=== PATIENT | female | born 1940 | race Caucasian/White ===

== ENCOUNTER 2018-02-21 07:40 | Inpatient (IN) | payer OTHER ==
[2018-02-21] VITALS (23 sets, daily range): BP systolic 59–168; BP diastolic 38–76
[~2018-02-21] VITALS: Ht 419.1 cm; Wt 64.7 kg
[2018-02-21] MEDS ORDERED: BACITRACIN 50,000 UNIT VIAL ONE (10:12)
[2018-02-21] MEDS ORDERED: OCTYL 2-CYANOACRYLATE 1 EACH TP ONE (10:12)
[2018-02-21] MEDS ORDERED: DIGOXIN PO (10:28)
[2018-02-21] MEDS ORDERED: SENN-183 PO (10:28)
[2018-02-21] MEDS ORDERED: SENN-107 PO (10:28)
[2018-02-21] MEDS ORDERED: CARV3.12 PO (10:28)
[2018-02-21] MEDS ORDERED: MULT-1203 PO (10:28)
[2018-02-21] MEDS ORDERED: PANT40TA25 PO (10:28)
[2018-02-21] MEDS ORDERED: ASPI-555 PO (10:28)
[2018-02-21] MEDS ORDERED: SPIR25TA6 PO (10:28)
[2018-02-21] MEDS ORDERED: ATOR40TA71 PO (10:28)
[2018-02-21] MEDS ORDERED: ROCURONIUM BROMIDE 10MG/1ML 5ML VL ONE (10:37)
[2018-02-21] MEDS ORDERED: SODIUM BICARB 50MEQ 50ML VIAL ONE ×2 (10:37→11:46)
[2018-02-21] MEDS ORDERED: AMIODARONE HCL 50 MG/ML 3 ML VIAL ONE (10:37)
[2018-02-21] MEDS ORDERED: CLINDAMYCIN 900 MG/D5% WATER 50 ML IV ONE (10:37)
[2018-02-21] MEDS ORDERED: POTASSIUM CHLORIDE 20MEQ/100ML 200 ML IV ONE (10:37)
[2018-02-21] MEDS ORDERED: SODIUM CHLORIDE 0.9% 1000ML 1,000 ML IV ONE (10:37)
[2018-02-21] MEDS ORDERED: NITROGLYCERIN 50 MG/D5% WATER 1 BOT ONE (10:37)
[2018-02-21] MEDS ORDERED: THROMBIN-JMI 5000 UNIT/VIAL TP ONE (11:42)
[2018-02-21] MEDS ORDERED: DELNIDO FORMULA 2 BAG IV ONE (11:42)
[2018-02-21] MEDS ORDERED: PROPOFOL 10 MG/ML 20ML VIAL IV ONE (11:46)
[2018-02-21] MEDS ORDERED: AMINOCAPROIC ACID 250 MG/ML 20 ML VIAL IV ONE (11:46)
[2018-02-21] MEDS ORDERED: MIDAZOLAM HCL 1 MG/ML 5ML VIAL ONE (11:46)
[2018-02-21] MEDS ORDERED: EPINEPHRINE 1 MG/ML AMPULE ONE (11:46)
[2018-02-21] MEDS ORDERED: HEPARIN SODIUM 1000UNIT/ML 10ML VIAL ONE (11:46)
[2018-02-21] MEDS ORDERED: ESMOLOL HCL 10 MG/ML 10 ML VIAL ONE (11:46)
[2018-02-21] MEDS ORDERED: LIDOCAINE PF 2% 5ML ABBOJECT ONE (11:46)
[2018-02-21] MEDS ORDERED: FENTANYL CITRATE PF 50 MCG/1 ML 20ML VIAL IJ ONE (11:46)
[2018-02-21] MEDS ORDERED: NOREPINEPHRINE BITARTRATE 1 MG/1 ML ML IV ONE ×2 (11:46→12:45)
[2018-02-21] MEDS ORDERED: NEOSTIGMINE 5MG/5ML SYR IV ONE (11:47)
[2018-02-21] MEDS ORDERED: GLYCOPYRROLATE 1 MG/5 ML SYRINGE ONE (12:17)
[2018-02-21 12:19] LABS: ABG BASE EXCESS -4.2 mmol/L (-2.0-3.0); ABG HCO3 21.2 mmol/L (21.0-28.0); ABG OXYGEN SATURATION 99.5 % (95.0-99.0); ABG PCO2 40 mmHg (32-45)
[2018-02-21] MEDS ORDERED: METHYLPREDNISOLONE SOD SUCC 1,000 MG/8 ML ML IV ONE (12:45)
[2018-02-21] MEDS: Q-PUMP 1 EACH IRRIG SCH (13:15)
[2018-02-21] MEDS ORDERED: SODIUM CHLORIDE 0.9% 500ML 500 ML IV SCH (13:19)
[2018-02-21 13:20] LABS: ABG BASE EXCESS 3.1 mmol/L (-2.0-3.0); ABG HCO3 26.2 mmol/L (21.0-28.0); ABG OXYGEN SATURATION 98.9 % (95.0-99.0); ABG PCO2 34 mmHg (32-45)
[2018-02-21] MEDS ORDERED: AMINOCAPROIC ACID 15,000 MG in SODIUM CHLORIDE 0.9% 250 ML IV SCH (13:30)
[2018-02-21] MEDS ORDERED: ACETAMINOPHEN 650 MG SUPPOSITORY RC PRN (13:30)
[2018-02-21] MEDS ORDERED: ACETAMINOPHEN 325 MG TAB PO PRN (13:30)
[2018-02-21] MEDS ORDERED: POTASSIUM CHLORIDE 20MEQ/100ML 100 ML IV PRN (13:30)
[2018-02-21] MEDS ORDERED: PROPOFOL 1000 MG/100 ML 100 ML IV PRN (13:30)
[2018-02-21] MEDS ORDERED: TRAMADOL HCL 50 MG TABLET PO SCH (13:30)
[2018-02-21] MEDS ORDERED: POTASSIUM PHOS 15 mMOL+NS250ML 250 ML IV PRN (13:30)
[2018-02-21] MEDS ORDERED: SODIUM CHLORIDE 0.9% 1000ML 1,000 ML IV SCH (13:30)
[2018-02-21] MEDS ORDERED: SODIUM CHLORIDE 0.9% 10 ML VIAL IVP PRN (13:30)
[2018-02-21] MEDS ORDERED: TRAMADOL HCL 50 MG TABLET PO PRN ×2 (13:30→18:00)
[2018-02-21] MEDS ORDERED: NITROGLYCERIN 50 MG/D5% WATER 250 BOT IV SCH (13:30)
[2018-02-21] MEDS ORDERED: EPINEPHRINE 8 MG in SODIUM CHLORIDE 0.9% 250 ML IV PRN (13:30)
[2018-02-21] MEDS ORDERED: SODIUM CHLORIDE 0.9% 250 ML IV PRN (13:30)
[2018-02-21] MEDS ORDERED: ALBUMIN (HUMAN) 5% 250 ML IV PRN (13:30)
[2018-02-21] MEDS ORDERED: GLUCAGON 1MG KIT 1 MG ML IM PRN (13:30)
[2018-02-21] MEDS ORDERED: NOREPINEPHRINE 4MG/NS 250ML 250 ML IV PRN (13:30)
[2018-02-21] MEDS ORDERED: DEXTROSE 50%-WATER 50 ML DISP.SYRIN IV PRN (13:30)
[2018-02-21] MEDS ORDERED: ONDANSETRON HCL 4 MG/2 ML VIAL IV PRN (13:30)
[2018-02-21] MEDS ORDERED: MAGNESIUM 2GM PREMIX 50ML 50 ML IV PRN (13:30)
[2018-02-21 13:46] LABS: ABG BASE EXCESS -7.4 mmol/L (-2.0-3.0); ABG HCO3 17.1 mmol/L (21.0-28.0); ABG OXYGEN SATURATION 99.2 % (95.0-99.0); ABG PCO2 31 mmHg (32-45)
[2018-02-21] MEDS ORDERED: PROTAMINE SULFATE 10 MG/ML 25ML VIAL IV ONE (13:54)
[2018-02-21] MEDS ORDERED: PROTAMINE SULFATE 10 MG/ML 5 ML VIAL ONE (13:54)
[2018-02-21] MEDS ORDERED: ROPIVACAINE 0.2% 2MG/ML 100ML VIAL IJ ONE (14:00)
[2018-02-21 14:15] LABS: ABG BASE EXCESS -4.9 mmol/L (-2.0-3.0); ABG HCO3 18.2 mmol/L (21.0-28.0); ABG OXYGEN SATURATION 98.8 % (95.0-99.0); ABG PCO2 27 mmHg (32-45)
[2018-02-21] MEDS ORDERED: SUB TO ALBUTEROL 2.5MG/3ML NEBULES PER P&T IH ONE (14:31)
[2018-02-21 14:52] LABS: ABG BASE EXCESS -2.1 mmol/L (-2.0-3.0); ABG HCO3 23.6 mmol/L (21.0-28.0); ABG OXYGEN SATURATION 96.4 % (95.0-99.0); ABG PCO2 44 mmHg (32-45)
[2018-02-21 15:46] LABS: HEMATOCRIT 34.1 % (36-48); MEAN CORPUSCULAR HEMOGLOBIN 29.1 pg (27.0-33.0); MEAN CORPUSCULAR HGB CONC 32.7 g/dL (32.0-36.0); MEAN CORPUSCULAR VOLUME 89.1 fL (79-99); NUCLEATED RED BLOOD CELLS 0.1 % (0.0-0.19); PLATELET COUNT (AUTO) 170 K/uL (130-400); RED BLOOD CELL COUNT(AUTO) 3.82 MIL/uL (4.00-5.50); RED CELL DISTRIBUTION WIDTH 17.2 % (11.0-15.5); WHITE BLOOD COUNT (AUTO) 22.8 K/uL (4.8-10.8)
[2018-02-21 15:47] LABS: ABG HCO3 19.7 mmol/L (21.0-28.0); ABG PCO2 44 mmHg (32-45)
[2018-02-21 15:58] LABS: CREATININE 1.1 mg/dL (0.5-1.5); MAGNESIUM 2.8 mg/dL (1.80-2.40); PHOSPHORUS 4.3 mg/dL (2.5-4.9); POTASSIUM 4.3 mmol/L (3.5-5.1)
[2018-02-21] MEDS: CALCIUM GLUCONATE 1 GM in SODIUM CHLORIDE 0.9% 50 ML IV PRN (16:05)
[2018-02-21] MEDS: INSULIN REGULAR, HUMAN 3ML 100 UNIT in SODIUM CHLORIDE 0.9% 99 ML IV SCH ×2 (16:07)
[2018-02-21] MEDS: SODIUM BICARB 50MEQ 50ML VIAL IV PRN ×2 (16:10→17:10)
[2018-02-21 17:00] LABS: ABG BASE EXCESS -2.1 mmol/L (-2.0-3.0); ABG OXYGEN SATURATION 90.5 % (95.0-99.0); ABG PCO2 52 mmHg (32-45)
[2018-02-21 18:07] LABS: ABG BASE EXCESS -0.2 mmol/L (-2.0-3.0); ABG HCO3 26.6 mmol/L (21.0-28.0); ABG PCO2 52 mmHg (32-45)
[2018-02-21 19:10] LABS: ABG BASE EXCESS -0.7 mmol/L (-2.0-3.0); ABG HCO3 25.4 mmol/L (21.0-28.0); ABG OXYGEN SATURATION 93.2 % (95.0-99.0); ABG PCO2 47 mmHg (32-45)
[2018-02-21] MEDS: ATORVASTATIN CALCIUM 40 MG TABLET PO SCH (20:35)
[2018-02-21] MEDS ORDERED: ASPIRIN 81MG TAB.CHEW PO SCH (21:00)
[2018-02-21] MEDS: CLINDAMYCIN 900 MG/D5% WATER 50 ML IV SCH (21:23)
[2018-02-21 22:00] LABS: MAGNESIUM 2.6 mg/dL (1.80-2.40); POTASSIUM 3.7 mmol/L (3.5-5.1)
[2018-02-21] MEDS ORDERED: CALCIUM GLUCONATE 1 GM/10 ML VIAL IV ONE (22:31)
[2018-02-22] VITALS (35 sets, daily range): BP systolic 48–188; BP diastolic 35–83
[2018-02-22 00:17] LABS: ABG BASE EXCESS -1.6 mmol/L (-2.0-3.0); ABG HCO3 23.4 mmol/L (21.0-28.0); ABG OXYGEN SATURATION 96.9 % (95.0-99.0); ABG PCO2 41 mmHg (32-45)
[2018-02-22] MEDS: SODIUM BICARB 50MEQ 50ML VIAL IV PRN (00:17)
[2018-02-22 02:27] LABS: ABG BASE EXCESS 2.6 mmol/L (-2.0-3.0); ABG HCO3 27.3 mmol/L (21.0-28.0); ABG OXYGEN SATURATION 91.8 % (95.0-99.0); ABG PCO2 43 mmHg (32-45)
[2018-02-22 03:37] LABS: ABG BASE EXCESS 2.5 mmol/L (-2.0-3.0); ABG HCO3 27.3 mmol/L (21.0-28.0); ABG OXYGEN SATURATION 94.2 % (95.0-99.0); ABG PCO2 43 mmHg (32-45)
[2018-02-22 03:46] LABS: MEAN CORPUSCULAR HEMOGLOBIN 28.1 pg (27.0-33.0); MEAN CORPUSCULAR HGB CONC 31.9 g/dL (32.0-36.0); MEAN CORPUSCULAR VOLUME 88.2 fL (79-99); PLATELET COUNT (AUTO) 157 K/uL (130-400); RED BLOOD CELL COUNT(AUTO) 4.09 MIL/uL (4.00-5.50); RED CELL DISTRIBUTION WIDTH 17.2 % (11.0-15.5); WHITE BLOOD COUNT (AUTO) 21.6 K/uL (4.8-10.8)
[2018-02-22 03:58] LABS: INR 1.02 (0.85-1.15); PARTIAL THROMBOPLASTIN TIME 23.6 SEC (26.3-35.5); PROTHROMBIN TIME 10.7 SEC (9.6-11.6)
[2018-02-22 04:01] LABS: CREATININE 1.7 mg/dL (0.5-1.5); MAGNESIUM 2.4 mg/dL (1.80-2.40); PHOSPHORUS 3.3 mg/dL (2.5-4.9); POTASSIUM 4.3 mmol/L (3.5-5.1)
[2018-02-22] MEDS: CLINDAMYCIN 900 MG/D5% WATER 50 ML IV SCH ×2 (06:02→14:09)
[2018-02-22] MEDS ORDERED: ALBUMIN (HUMAN) 5% 250 ML IV ONE ×2 (07:53→17:11)
[2018-02-22] MEDS: PANTOPRAZOLE SODIUM 40 MG TABLET.DR PO SCH (07:58)
[2018-02-22] MEDS ORDERED: DEXTROSE 5%-WATER 1,000 ML IV SCH (10:00)
[2018-02-22] MEDS: DIGOXIN 125 MCG TABLET PO SCH (10:50)
[2018-02-22] MEDS: Q-PUMP 1 EACH IRRIG SCH (12:04)
[2018-02-22 17:26] LABS: ABG HCO3 29.3 mmol/L (21.0-28.0); ABG OXYGEN SATURATION 94.9 % (95.0-99.0); ABG PCO2 48 mmHg (32-45)
[2018-02-22] MEDS: CALCIUM GLUCONATE 1 GM in SODIUM CHLORIDE 0.9% 50 ML IV PRN (17:44)
[2018-02-22] MEDS: INSULIN REGULAR, HUMAN 3ML 100 UNIT in SODIUM CHLORIDE 0.9% 99 ML IV SCH ×2 (17:45)
[2018-02-22] MEDS: ATORVASTATIN CALCIUM 40 MG TABLET PO SCH ×2 (20:29→20:30)
[2018-02-23] VITALS (7 sets, daily range): BP systolic 108–149; BP diastolic 45–95
[2018-02-23 03:33] LABS: BASOPHILS % (AUTO) 0.1 % (0.0-5.0); EOSINOPHILS % (AUTO) 0.1 % (0.0-8.0); HEMATOCRIT 26.7 % (36-48); MEAN CORPUSCULAR HEMOGLOBIN 29.2 pg (27.0-33.0); MEAN CORPUSCULAR HGB CONC 32.7 g/dL (32.0-36.0); MEAN CORPUSCULAR VOLUME 89.2 fL (79-99); MONOCYTES % (AUTO) 7.6 % (3.0-13.0); NEUTROPHILS % (AUTO) 88.2 % (40.0-77.0); PLATELET COUNT (AUTO) 98 K/uL (130-400); RED BLOOD CELL COUNT(AUTO) 2.99 MIL/uL (4.00-5.50); RED CELL DISTRIBUTION WIDTH 17.4 % (11.0-15.5); WHITE BLOOD COUNT (AUTO) 19.6 K/uL (4.8-10.8)
[2018-02-23 03:47] LABS: CREATININE 1.2 mg/dL (0.5-1.5); POTASSIUM 4.5 mmol/L (3.5-5.1)
[2018-02-23] MEDS: PANTOPRAZOLE SODIUM 40 MG TABLET.DR PO SCH (08:37)
[2018-02-23] MEDS: FUROSEMIDE 20 MG TABLET PO SCH ×2 (08:38→17:25)
[2018-02-23] MEDS: ASPIRIN 81MG TAB.CHEW PO SCH (08:38)
[2018-02-23] MEDS: DIGOXIN 125 MCG TABLET PO SCH (08:38)
[2018-02-23] MEDS ORDERED: SODIUM CHLORIDE 3% FOR INHALATION 4 ML/AMP VIAL.NEB IH ONE (11:41)
[2018-02-23 11:45] LABS: APPEARANCE,URINE Clear (CLEAR); BILIRUBIN,URINE Negative (NEGATIVE); COLOR,URINE Yellow (YELLOW); GLUCOSE, URINE (UA) Negative (NEGATIVE); KETONES,URINE Negative (NEGATIVE); LEUKOCYTE ESTERASE ,URINE Trace (NEGATIVE); NITRATE,URINE Negative (NEGATIVE); OCCULT BLOOD,URINE Negative (NEGATIVE); PH,URINE 5.5 (5.0-8.0); PROTEIN,URINE Negative (NEGATIVE); UROBILINOGEN,URINE 0.2 mg/dL (0.2-1.0)
[2018-02-23 11:57] LABS: BACTERIA,URINE Few /HPF (None Seen); SQUAMOUS EPITHELIAL CELL,UR 0-2 /HPF (0-2); WBC,URINE 0-1 /HPF (0-1)
[2018-02-23] MEDS: Q-PUMP 1 EACH IRRIG SCH (13:15)
[2018-02-23] MEDS: ATORVASTATIN CALCIUM 40 MG TABLET PO SCH (22:23)
[2018-02-23] MEDS: ACETAMINOPHEN 325 MG TAB PO PRN (23:16)
[2018-02-24 03:42] VITALS: BP 145/55
[2018-02-24 04:08] LABS: HEMATOCRIT 26.5 % (36-48); MEAN CORPUSCULAR HEMOGLOBIN 29.2 pg (27.0-33.0); MEAN CORPUSCULAR HGB CONC 33.1 g/dL (32.0-36.0); MEAN CORPUSCULAR VOLUME 88.3 fL (79-99); PLATELET COUNT (AUTO) 78 K/uL (130-400); RED BLOOD CELL COUNT(AUTO) 3.01 MIL/uL (4.00-5.50); RED CELL DISTRIBUTION WIDTH 17.3 % (11.0-15.5); WHITE BLOOD COUNT (AUTO) 13.8 K/uL (4.8-10.8)
[2018-02-24 04:19] LABS: CREATININE 1.2 mg/dL (0.5-1.5)
[2018-02-24] MEDS ORDERED: LIDOCAINE HCL-MPF 1% 2ML VIAL IVP PRN (05:15)
[2018-02-24] MEDS ORDERED: POTASSIUM CHLORIDE 20 MEQ ERTAB PO PRN (05:15)
[2018-02-24] MEDS ORDERED: POTASSIUM CHLORIDE 20MEQ/100ML 100 ML IV PRN (05:15)
[2018-02-24 07:00] VITALS: BP 166/72
[2018-02-24] MEDS: STOOL SOFTENER PO SCH (09:00)
[2018-02-24] MEDS ORDERED: CARVEDILOL 3.125 MG TABLET PO SCH (09:00)
[2018-02-24] MEDS: FUROSEMIDE 20 MG TABLET PO SCH ×2 (09:33→17:33)
[2018-02-24] MEDS: CARVEDILOL 6.25 MG TABLET PO SCH ×2 (09:34→20:55)
[2018-02-24] MEDS: PANTOPRAZOLE SODIUM 40 MG TABLET.DR PO SCH (09:34)
[2018-02-24] MEDS: DIGOXIN 125 MCG TABLET PO SCH (09:34)
[2018-02-24] MEDS: ASPIRIN 81MG TAB.CHEW PO SCH (09:34)
[2018-02-24 11:00] VITALS: BP 136/66
[2018-02-24 16:00] VITALS: BP 147/76
[2018-02-24 19:39] VITALS: BP_SYST 152; BP_SYST 165; BP_DIAS 76; BP_DIAS 92
[2018-02-24] MEDS: ATORVASTATIN CALCIUM 40 MG TABLET PO SCH (20:54)
[2018-02-25 00:27] VITALS: BP 144/77
[2018-02-25] MEDS: ACETAMINOPHEN 325 MG TAB PO PRN (00:33)
[2018-02-25 03:52] VITALS: BP 101/54
[2018-02-25 04:10] LABS: MAGNESIUM 1.4 mg/dL (1.80-2.40); POTASSIUM 3.7 mmol/L (3.5-5.1)
[2018-02-25] MEDS: POTASSIUM CHLORIDE 10% ELIXIR 20 MEQ/15 ML UDCUP PO PRN ×2 (04:41→06:40)
[2018-02-25 07:00] VITALS: BP 111/67
[2018-02-25] MEDS ORDERED: ENOXAPARIN SODIUM 30 MG/0.3 ML SQ SCH (09:00)
[2018-02-25 09:11] LABS: MAGNESIUM 1.9 mg/dL (1.80-2.40); POTASSIUM 4.5 mmol/L (3.5-5.1)
[2018-02-25] MEDS: CARVEDILOL 6.25 MG TABLET PO SCH (09:29)
[2018-02-25] MEDS: FUROSEMIDE 20 MG TABLET PO SCH (09:29)
[2018-02-25] MEDS: ASPIRIN 81MG TAB.CHEW PO SCH (09:30)
[2018-02-25] MEDS: PANTOPRAZOLE SODIUM 40 MG TABLET.DR PO SCH (09:30)
[2018-02-25] MEDS: DIGOXIN 125 MCG TABLET PO SCH (09:30)
[2018-02-25] MEDS: STOOL SOFTENER PO SCH (09:30)
[2018-02-25 11:00] VITALS: BP 94/48
[2018-02-25] MEDS ORDERED: IPRATROPIUM/ALBUTEROL SULFATE 3 ML SOLUTION IH SCH (14:00)
[2018-02-26] MEDS ORDERED: FUROSEMIDE 20 MG TABLET PO SCH (09:00)
[2018-02-26] MEDS ORDERED: POTASSIUM CHLORIDE 20 MEQ ERTAB PO SCH (09:00)
== END 2018-02-25 14:30 | DRG 219 ==
LOC: DAHIP 07:40 → 2CV 15:15 → 2BH 02-22 05:34
PROVIDERS: ADMIT Thoracic Surgery (Cardiothoracic Vascular Surgery); ATTEND Thoracic Surgery (Cardiothoracic Vascular Surgery)
PROC: 02RG08Z Replacement of Mitral Valve with Zooplastic Tissue, Open Approach (ICD-10-PCS; principal; 2018-02-21 11:46)
PROC: B24BZZ4 Ultrasonography of Heart with Aorta, Transesophageal (ICD-10-PCS; 2018-02-21 11:46)
DX: I05.2 Rheumatic mitral stenosis with insufficiency (principal); R65.11 Systemic inflammatory response syndrome (SIRS) of non-infectious origin with acute organ dysfunction; E87.0 Hyperosmolality and hypernatremia; I50.22 Chronic systolic (congestive) heart failure; T79.7XXA Traumatic subcutaneous emphysema, initial encounter; J93.9 Pneumothorax, unspecified; E78.5 Hyperlipidemia, unspecified; D69.6 Thrombocytopenia, unspecified; F17.200 Nicotine dependence, unspecified, uncomplicated; F41.9 Anxiety disorder, unspecified; I48.0 Paroxysmal atrial fibrillation; K57.90 Diverticulosis of intestine, part unspecified, without perforation or abscess without bleeding; I11.0 Hypertensive heart disease with heart failure; M19.90 Unspecified osteoarthritis, unspecified site; X58.XXXA Exposure to other specified factors, initial encounter; I25.5 Ischemic cardiomyopathy; J44.9 Chronic obstructive pulmonary disease, unspecified; I25.10 Atherosclerotic heart disease of native coronary artery without angina pectoris; Z95.5 Presence of coronary angioplasty implant and graft; I25.2 Old myocardial infarction; Z86.73 Personal history of transient ischemic attack (TIA), and cerebral infarction without residual deficits; Z87.81 Personal history of (healed) traumatic fracture; Z90.710 Acquired absence of both cervix and uterus; Z90.49 Acquired absence of other specified parts of digestive tract; Z88.0 Allergy status to penicillin; Z74.01 Bed confinement status; Z95.1 Presence of aortocoronary bypass graft
CPT/HCPCS: 36415; 71045; 76998; 80048; 81001; 82330; 82435; 82803; 82947; 82948; 83605; 83735; 84100; 84132; 84295; 85018; 85025; 85027; 85347; 85610; 85730; 86850; 86900; 86901; 86922; 87071; 87088; 87205; 88305; 94002; 94003; 94150; 94640; 94664; 97039; A7048; J0171; J0282; J0610; J1644; J1650; J1815; J2001; J2250; J2405; J2704; J2710; J2720; J2795; J2930; J3010; J3475; J3480; J3490; J7030; J7040; J7070; P9045